=== PATIENT | female | born 1990 | race Caucasian/White ===

== ENCOUNTER → 2017-05-02 | Outpatient (CLI) | payer MEDICAID ==
[~2017-05-02] MED LIST: GADOBUTROL 10 ML VIAL IVP ONE; IOPAMIDOL (ISOVUE 370) 100 ML BTL IV ONE; LIDOCAINE 1% 300 MG/30 ML SDV ONE; ROPIVACAINE HCL 150 MG/30 ML INJ ONE
== END ==
LOC: FIMAGING 10:17
PROVIDERS: ATTEND Family Medicine
PROC: 3E0U3KZ Introduction of Other Diagnostic Substance into Joints, Percutaneous Approach (ICD-10-PCS; principal; 2017-05-02)
DX: M25.551 Pain in right hip (principal); M76.01 Gluteal tendinitis, right hip
CPT/HCPCS: A9585; J2795; Q9967

== ENCOUNTER 2017-07-22 08:23 | Emergency (ER) | payer MEDICAID ==
[2017-07-22] MEDS ORDERED: KETOROLAC 30 MG/1 ML SDV IVP ONE (08:49)
[2017-07-22] MEDS ORDERED: NS 1,000 ML IV ONE (08:49)
--- NOTE | 2017-07-22 08:51 | EDPHY ---
HPI/HX/ROS/PE/MDM Narrative: CHIEF COMPLAINT: abdominal pain HPI: The patient is a 26 y/o female with a history of asthma arriving with her family member complaining of epigastric pain and vomiting onset last night. Yesterday around 14:00, about 17 hours ago, she developed belching. By that evening she had associated nausea and then vomited a couple times during the night. She now has epigastric and RUQ abdominal pain that is not alleviated by vomiting. Pain is worse with palpation and described as crampy in nature. She denies fever, diarrhea, hematemesis, urinary symptoms, cough, or other symptoms. She did eat out yesterday and says the food didn't taste good to her, but her son who ate the same food has no symptoms. No abdominal surgical history. REVIEW OF SYSTEMS: Aside from elements discussed in the HPI, a comprehensive 10-point review of systems was reviewed and is negative. PMH: Asthma SOCIAL HISTORY: Family member at bedside. Has a son. PHYSICAL EXAM: General:Patient is alert, in no acute distress. ENT:Eyes are normal to inspection. ENT inspection normal. Neck: Normal inspection. Full range of motion. Respiratory:No respiratory distress. Breath sounds normal bilaterally. Cardiovascular: Regular rate and rhythm. Strong peripheral pulses. Normal cap refill. Abdomen:The abdomen has RUQ tenderness to palpation. There are no peritoneal signs. Back: Normal to inspection. No tenderness to palpation. Skin: Normal color. No rash. Warm and dry. Extremities: Normal appearance. Full range of motion. Neuro: Oriented x3. Normal motor function. Normal sensory function. ED Course: This is a healthy 26 y/o female who presents with a several-hour history of RUQ/ epigastric abdominal pain with nausea, vomiting, and belching. She has RUQ tenderness on exam. Presentation indicates possible gallbladder issue. Plan for IV, labs, abdominal US, chest x-ray, and symptom management. 15mg IV Toradol, 4mg IV Zofran, and 1L IV NS ordered. US negative. Labs unremarkable. Reassessed patient and discussed findings. Her pain has improved, but is still present. Recommended CT abdomen for further evaluation, which she agrees to. Abdominal CT: negative Reassessed patient and discussed work up. She is feeling better and would like to go home. Abdomen is benign. I've recommended following up with GI in the next week. Return precautions discussed. She is comfortable with this plan. - Data Points Imaging Results: Imaging Impressions Abdomen Ultrasound 07/22/17 08:49 Impression: Normal right upper quadrant ultrasound. Findings discussed with Bright Phelan MD at 10:06 hour, 07/22/2017. Chest X-Ray 07/22/17 08:49 Impression: Normal. Abdomen CT 07/22/17 10:07 Impression: No acute findings in the abdomen or pelvis. Findings discussed with Bright Phelan MD 07/22/2017 at 11:25. Imaging: Discussed imaging studies w/ electrical/instrument technician Radiologist, I viewed and interpreted images myself Laboratory Results: Laboratory Results 07/22/17 09:00 07/22/17 09:00 07/22/17 07/22/17 07/22/17 09:00 09:00 09:00 WBC 6.88 10^3/uL 10^3/uL (3.80-9.50) RBC 5.50 10^6/uL H 10^6/uL (4.18-5.33) Hgb 16.4 g/dL H g/dL (12.6-16.3) Hct 46.6 % % (38.0-47.0) MCV 84.7 fL fL (81.5-99.8) MCH 29.8 pg pg (27.9-34.1) MCHC 35.2 g/dL g/dL (32.4-36.7) RDW 11.9 % % (11.5-15.2) Plt Count 194 10^3/uL 10^3/uL (150-400) MPV 9.4 fL fL (8.7-11.7) Neut % (Auto) 71.9 % % (39.3-74.2) Lymph % (Auto) 20.9 % % (15.0-45.0) Chase % (Auto) 6.5 % % (4.5-13.0) Eos % (Auto) 0.3 % L % (0.6-7.6) Baso % (Auto) 0.3 % % (0.3-1.7) Nucleat RBC Rel Count 0.0 % % (0.0-0.2) Absolute Neuts (auto) 4.94 10^3/uL 10^3/uL (1.70-6.50) Absolute Lymphs (auto) 1.44 10^3/uL 10^3/uL (1.00-3.00) Absolute Monos (auto) 0.45 10^3/uL 10^3/uL (0.30-0.80) Absolute Eos (auto) 0.02 10^3/uL L 10^3/uL (0.03-0.40) Absolute Basos (auto) 0.02 10^3/uL 10^3/uL (0.02-0.10) Absolute Nucleated RBC 0.00 10^3/uL 10^3/uL (0-0.01) Immature Gran % 0.1 % % (0.0-1.1) Immature Gran # 0.01 10^3/uL 10^3/uL (0.00-0.10) Sodium 142 mEq/L mEq/L (135-145) Potassium 4.2 mEq/L mEq/L (3.5-5.2) Chloride 106 mEq/L mEq/L (97-110) Carbon Dioxide 23 mEq/l mEq/l (22-31) Anion Gap 13 mEq/L mEq/L (8-16) BUN 13 mg/dL mg/dL (7-23) Creatinine 0.7 mg/dL mg/dL (0.6-1.0) Estimated GFR > 60 Glucose 104 mg/dL H mg/dL (70-100) Calcium 9.4 mg/dL mg/dL (8.5-10.4) Total Bilirubin 1.6 mg/dL H mg/dL (0.1-1.4) Conjugated Bilirubin 0.2 mg/dL mg/dL (0.0-0.5) Unconjugated Bilirubin 1.4 mg/dL H mg/dL (0.0-1.1) AST 27 IU/L IU/L (14-46) ALT 23 IU/L IU/L (9-52) Alkaline Phosphatase 54 IU/L IU/L (38-126) Total Protein 7.5 g/dL g/dL (6.3-8.2) Albumin 4.7 g/dL g/dL (3.5-5.0) Lipase 71 IU/L IU/L (23-300) Beta HCG, Qual NEGATIVE Urine Color Urine Appearance Urine pH Ur Specific [place] Urine Protein Urine Ketones Urine Blood Urine Nitrate Urine Bilirubin Urine Urobilinogen Ur Leukocyte Esterase Urine Glucose 07/22/17 08:54 WBC RBC Hgb Hct MCV MCH MCHC RDW Plt Count MPV Neut % (Auto) Lymph % (Auto) Chase % (Auto) Eos % (Auto) Baso % (Auto) Nucleat RBC Rel Count Absolute Neuts (auto) Absolute Lymphs (auto) Absolute Monos (auto) Absolute Eos (auto) Absolute Basos (auto) Absolute Nucleated RBC Immature Gran % Immature Gran # Sodium Potassium Chloride Carbon Dioxide Anion Gap BUN Creatinine Estimated GFR Glucose Calcium Total Bilirubin Conjugated Bilirubin Unconjugated Bilirubin AST ALT Alkaline Phosphatase Total Protein Albumin Lipase Beta HCG, Qual Urine Color YELLOW Urine Appearance CLEAR Urine pH 8.0 H (5.0-7.5) Ur Specific [place] 1.012 (1.002-1.030) Urine Protein NEGATIVE (NEGATIVE) Urine Ketones NEGATIVE (NEGATIVE) Urine Blood NEGATIVE (NEGATIVE) Urine Nitrate NEGATIVE (NEGATIVE) Urine Bilirubin NEGATIVE (NEGATIVE) Urine Urobilinogen NEGATIVE EU EU (0.2-1.0) Ur Leukocyte Esterase NEGATIVE (NEGATIVE) Urine Glucose NEGATIVE (NEGATIVE) Medications Given: Discontinued Medications Hydromorphone HCl (Dilaudid) 0.5 mg IVP EDNOW ONE Stop: 07/22/17 10:15 Last Admin: 07/22/17 10:19 Dose: 0.5 mg Sodium Chloride (Ns) 1,000 mls @ 0 mls/hr IV EDNOW ONE; Wide Open PRN Reason: Protocol Stop: 07/22/17 08:50 Last Admin: 07/22/17 09:00 Dose: 1,000 mls Ketorolac Tromethamine (Toradol) 15 mg IVP EDNOW ONE Stop: 07/22/17 08:50 Last Admin: 07/22/17 09:00 Dose: 15 mg Ondansetron HCl (Zofran) 4 mg IVP EDNOW ONE Stop: 07/22/17 08:57 Last Admin: 07/22/17 09:00 Dose: 4 mg General Time Seen by Provider: 07/22/17 08:38 Initial Vital Signs: Initial Vital Signs Temperature (C) 36.5 C 07/22/17 08:30 Heart Rate 84 07/22/17 08:30 Respiratory Rate 16 07/22/17 08:30 Blood Pressure 107/64 07/22/17 08:30 O2 Sat (%) 96 07/22/17 08:30 O2 Delivery Mode Room Air Allergies/Adverse Reactions: Penicillins Allergy (Verified 07/22/17 08:29) Sulfa (Sulfonamide Antibiotics) Allergy (Verified 07/22/17 08:29) Home Medications: Medication Instructions Recorded NK [No Known Home Meds] 07/22/17 Departure - Departure Disposition: Home, Routine, Self-Care Clinical Impression: Abdominal pain Qualifiers: Abdominal location: right upper quadrant Qualified Code(s): R10.11 - Right upper quadrant pain Condition: Good Instructions: Acute Abdominal Pain (ED) Additional Instructions: Follow up with debone supervisor in the next week. I recommend calling today to schedule this appointment. Return to the ED for worsening of condition. Referrals: Jamie Rivera MD [Medical Doctor] - As per Instructions Report Scribed for: Bright Phelan Report Scribed by: Nalini Forrester Date of Report: 07/22/17 Time of Report: 08:41 Physician Review and Approval Statement: Portions of this note were transcribed by an ED scribe. I personally performed the history, physical exam, and medical decision making; and confirm the accuracy of the information in the transcribed note.
[2017-07-22] MEDS ORDERED: ONDANSETRON 4 MG/2 ML VIAL ONE (08:53)
[2017-07-22] MEDS ORDERED: ONDANSETRON 4 MG/2 ML VIAL IVP ONE (08:56)
[2017-07-22 09:13] LABS: PLATELET COUNT 194 10^3/uL (150-400)
[2017-07-22] MEDS ORDERED: HYDROmorphONE/DILAUDID 2 MG/ML INJ IVP ONE (10:14)
[2017-07-22] MEDS ORDERED: IOPAMIDOL (ISOVUE-300) 100 ML BTL ONE (10:36)
[2017-07-22] MEDS ORDERED: MAG HYDROX/AL HYDROX/SIMETH 30 ML UDCUP PO ONE (12:21)
[2017-07-22] MEDS ORDERED: LIDOCAINE 2% VISCOUS 15 ML UDCUP PO ONE (12:21)
[2017-07-22] MEDS ORDERED: HYOSCYAMINE SULFATE 0.125 MG TAB PO ONE (12:21)
[2017-07-22 12:27] VITALS: BP 107/69
== END 2017-07-22 12:29 | disposition home or self-care (01) ==
DX: R10.11 Right upper quadrant pain (principal); E86.9 Volume depletion, unspecified; J45.909 Unspecified asthma, uncomplicated
CPT/HCPCS: 96374; J1170; J1885; J2405; Q9967